=== PATIENT | male | born 1995 | race Caucasian/White ===

== ENCOUNTER 2020-10-23 05:34 | Emergency (ER) | payer OTHER ==
[2020-10-23 06:03] VITALS: BP 185/92; PULSE 55; RESP 20; TEMP 98.2
[2020-10-23] MEDS ORDERED: PENICILLIN VK 500MG STARTER 4 TAB BTL PO STA (06:18)
[2020-10-23] MEDS ORDERED: ACET/COD 300 MG/30 MG STARTER PACK 6 TAB BTL PO STA (06:18)
[2020-10-23] MEDS ORDERED: HYDROcodone/APAP 5-325MG 1 EACH TAB PO STA (06:18)
--- NOTE | 2020-10-23 06:20 | ED ---
ENT HPI - General Chief complaint: Dental/Oral Stated complaint: Mouth Pain Time Seen by Provider: 10/23/20 06:05 Source: patient, family, RN notes reviewed Mode of arrival: ambulatory Limitations: no limitations - History of Present Illness Initial comments: 25-year-old male presents emergency Department chief complaint dental infection. Patient states that his been having increasing dental pain. Patient has known dental fractures. Patient states he has not contacted a dentist no fevers or chills. Patient believes he has underlying infection. Patient denies any difficulty swallowing no headache no dizziness no other complaints. - Related Data Previous Rx's Medication Instructions Recorded Ibuprofen [Motrin] 600 mg PO Q8HR PRN #30 tab 10/23/20 Penicillin V Potassium [Pen Vee K] 500 mg PO QID #40 tablet 10/23/20 Allergies Allergy/AdvReac Type Severity Reaction Status Date / Time No Known Allergies Allergy Verified 10/23/20 06:03 Review of Systems ROS Statement: Those systems with pertinent positive or pertinent negative responses have been documented in the HPI. ROS Other: All systems not noted in ROS Statement are negative. Past Medical History Past Medical History: No Reported History History of Any Multi-Drug Resistant Organisms: None Reported Past Surgical History: No Surgical Hx Reported Past Psychological History: No Psychological Hx Reported Smoking Status: Current every day smoker Past Alcohol Use History: Occasional Past Drug Use History: None Reported General Exam Limitations: no limitations General appearance: alert, in no apparent distress Head exam: Present: atraumatic, normocephalic, normal inspection Eye exam: Present: normal appearance, PERRL, EOMI. Absent: scleral icterus, conjunctival injection, periorbital swelling ENT exam: Present: mucous membranes moist. Absent: normal oropharynx (Multiple dental fractures, dental caries noted, no drainable abscess mild gingival erythema noted) Neck exam: Present: normal inspection, full ROM. Absent: tenderness, lymphadenopathy Respiratory exam: Present: normal lung sounds bilaterally. Absent: respiratory distress, wheezes, rales, rhonchi, stridor Cardiovascular Exam: Present: regular rate, normal rhythm, normal heart sounds. Absent: systolic murmur, diastolic murmur, rubs, gallop, clicks Neurological exam: Present: alert Skin exam: Present: warm, dry, intact, normal color. Absent: rash Course Vital Signs 10/23/20 05:58 Temperature 98.2 F Pulse Rate 55 L Respiratory 20 Rate Blood Pressure 185/92 O2 Sat by Pulse 99 Oximetry Medical Decision Making - Medical Decision Making Patient was started on antibiotics, given pain medication will follow-up with dentist instructed to call today for an appointment return parameters were discussed. Disposition Clinical Impression: Fracture of tooth, Dental caries, Toothache Disposition: HOME SELF-CARE Condition: Stable Instructions (If sedation given, give patient instructions): Toothache (ED) Additional Instructions: Please return to the Emergency Department if symptoms worsen or any other concerns. Prescriptions: Ibuprofen [Motrin] 600 mg PO Q8HR PRN #30 tab PRN Reason: Pain Penicillin V Potassium [Pen Vee K] 500 mg PO QID #40 tablet Is patient prescribed a controlled substance at d/c from ED?: No Referrals: None,Stated [Primary Care Provider] - 1-2 days Time of Disposition: 06:19
== END 2020-10-23 06:30 | disposition home or self-care (01) ==
LOC: EC 05:34
DX: S02.5XXA Fracture of tooth (traumatic), initial encounter for closed fracture (principal); K02.9 Dental caries, unspecified; F17.200 Nicotine dependence, unspecified, uncomplicated; X58.XXXA Exposure to other specified factors, initial encounter
CPT/HCPCS: 99282

== ENCOUNTER 2020-12-30 20:42 | Emergency (ER) | payer OTHER ==
[2020-12-30 20:47] VITALS: BP 136/80; PULSE 90; RESP 18; TEMP 98.3
--- NOTE | 2020-12-30 21:56 | XR ---
EXAMINATION TYPE: XR foot complete LT DATE OF EXAM: 12/30/2020 COMPARISON: NONE HISTORY: Pain TECHNIQUE: 3 views FINDINGS: Metatarsals are intact. I see no fracture nor dislocation. Joint spaces are normal. IMPRESSION: Negative left foot exam.
--- NOTE | 2020-12-30 21:59 | XR ---
EXAMINATION TYPE: XR ankle complete LT DATE OF EXAM: 12/30/2020 COMPARISON: NONE HISTORY: Pain TECHNIQUE: 3 views FINDINGS: Ankle mortise is anatomic. I see no fracture nor dislocation. Joint spaces are normal. IMPRESSION: Negative left ankle exam.
[2020-12-30] MEDS ORDERED: ACETAMINOPHEN TAB 325 MG TAB PO STA (22:20)
[2020-12-30] MEDS ORDERED: IBUPROFEN 600 MG STARTER PACK 4 TAB BTL PO STA (22:20)
--- NOTE | 2020-12-30 22:23 | ED ---
Lower Extremity Injury HPI - General Chief Complaint: Extremity Injury, Lower Stated Complaint: L ankle injury Time Seen by Provider: 12/30/20 21:03 Source: patient Mode of arrival: wheelchair Limitations: no limitations - History of Present Illness Initial Comments: 25-year-old male patient presents to the emergency department today for evaluation of left foot and ankle pain after an injury. Patient states that he was carrying some boxes on uneven sidewalk when he rolled his ankle. Patient states the pain was so bad that it caused him to black out. Patient did fall and did hit his head but denies any current headache, blurred vision, double vision, nausea, vomiting. Injury occurred around 2:00 this afternoon. Patient states he developed some increased pain and swelling over the foot so he presented here for further evaluation. He denies any numbness or tingling to the foot. States it does hurt worse with weightbearing. Denies any other injuries or concerns. Patient denies any neck pain, back pain, chest pain, shortness of breath, dizziness, weakness, abdominal pain, or difficulties with bowel movements or urination. - Related Data Previous Rx's Medication Instructions Recorded Ibuprofen [Motrin] 600 mg PO Q8HR PRN #30 tab 10/23/20 Penicillin V Potassium [Pen Vee K] 500 mg PO QID #40 tablet 10/23/20 Ibuprofen [Motrin] 600 mg PO Q8HR PRN #30 tab 12/30/20 Allergies Allergy/AdvReac Type Severity Reaction Status Date / Time No Known Allergies Allergy Verified 12/30/20 20:47 Review of Systems ROS Statement: Those systems with pertinent positive or pertinent negative responses have been documented in the HPI. ROS Other: All systems not noted in ROS Statement are negative. Past Medical History Past Medical History: No Reported History History of Any Multi-Drug Resistant Organisms: None Reported Past Surgical History: No Surgical Hx Reported Past Psychological History: No Psychological Hx Reported Smoking Status: Current every day smoker, Vaper Past Alcohol Use History: Occasional Past Drug Use History: Marijuana General Exam Limitations: no limitations General appearance: alert, in no apparent distress, other (This is a well- developed, well-nourished adult male patient in no acute distress. Vital signs upon presentation are temperature 98.3F, pulse 90, respirations 18, blood pressure 136/80, pulse ox 98% on room air.) Eye exam: Present: normal appearance, PERRL, EOMI. Absent: scleral icterus, conjunctival injection, periorbital swelling ENT exam: Present: normal exam, normal oropharynx, mucous membranes moist Neck exam: Present: normal inspection, full ROM, other (Nontender, no step-off, no deformity to firm midline palpation of the posterior cervical spine. Full range of motion without pain or limitation.). Absent: tenderness, meningismus, lymphadenopathy Respiratory exam: Present: normal lung sounds bilaterally. Absent: respiratory distress, wheezes, rales, rhonchi, stridor Cardiovascular Exam: Present: regular rate, normal rhythm, normal heart sounds. Absent: systolic murmur, diastolic murmur, rubs, gallop, clicks Extremities exam: Present: full ROM, normal capillary refill, other (There is soft tissue swelling and ecchymosis over the dorsal aspect of the foot over the proximal fourth and fifth metatarsal. Pedal and posttibial pulses are 2+. Skin is pink, warm, dry. Cap refill less than 3 seconds.). Absent: normal i nspection, tenderness, pedal edema, joint swelling, calf tenderness Back exam: Present: normal inspection, other (Nontender, no step-off, no deformity to firm midline palpation of the thoracic and lumbar vertebrae. Full range of motion without pain or limitation.). Absent: vertebral tenderness Neurological exam: Present: alert, oriented X3, CN II-XII intact Psychiatric exam: Present: normal affect, normal mood Skin exam: Present: warm, dry, intact, normal color. Absent: rash Course Vital Signs 12/30/20 20:43 Temperature 98.3 F Pulse Rate 90 Respiratory 18 Rate Blood Pressure 136/80 O2 Sat by Pulse 98 Oximetry Medical Decision Making - Medical Decision Making 25-year-old male patient presented for evaluation of left foot and ankle pain after an injury earlier today. Physical examination did reveal soft tissue swelling over the dorsal aspect of the left foot over the proximal fourth and fifth metatarsal. X-ray of the foot and ankle were negative. He was given ibup rofen here. He was given Rafael wrap for compression and support. Discussed Sprain as a cause for his symptoms. Instructed to take Tylenol Motrin for pain control. Instructed to rest, ice, elevate the foot. He is instructed follow up with orthopedics if his symptoms aren't improved over the next week. Return parameters discussed in detail. He verbalizes understanding and agrees with this plan. My attending is Dr. Guerra. - Radiology Data Radiology results: report reviewed, image reviewed 3 views of the left foot are obtained. Report reviewed in its entirety. Impression by Dr. Merritt shows negative left foot exam 3 views of the left ankle are obtained. Report was reviewed in its entirety. Impression by Dr. Merritt shows negative left ankle exam. Disposition Clinical Impression: Sprain of left foot Disposition: HOME SELF-CARE Condition: Good Additional Instructions: Rest, ice, and elevate the left foot. Wear rafael wrap for comfort and support. Weight bearing as tolerated. Follow up with orthopedics if symptoms aren't improved over the next one to days. Return for any new, worsening, or concerning symptoms. Prescriptions: Ibuprofen [Motrin] 600 mg PO Q8HR PRN #30 tab PRN Reason: Pain Is patient prescribed a controlled substance at d/c from ED?: No Referrals: Albert Alexander DO [Doctor of Osteopathic Medicine] - 1-2 days Time of Disposition: 22:23
== END 2020-12-30 22:41 | disposition home or self-care (01) ==
LOC: EC 20:42
DX: S93.602A Unspecified sprain of left foot, initial encounter (principal); F17.200 Nicotine dependence, unspecified, uncomplicated; F12.90 Cannabis use, unspecified, uncomplicated; X50.1XXA Overexertion from prolonged static or awkward postures, initial encounter; Y92.480 Sidewalk as the place of occurrence of the external cause
CPT/HCPCS: 99283